=== PATIENT | male | born 1960 | race Caucasian/White ===

== ENCOUNTER 2021-01-26 13:14 | Inpatient (IN) | payer BC ==
[~2021-01-26] VITALS: Ht 185.5 cm; Wt 107.3 kg
[2021-01-26] VITALS (128 sets, daily range): BP systolic 137; BP diastolic 103; PULSE 94; O2SAT 88–100
[2021-01-26 14:12] LABS: BASO # 0.1 (0.0-0.2); BASO % 0.6 % (0.0-2.0); EOS # 0.3 (0.0-0.7); GRAN # 4.3 (1.4-6.5); GRAN % 52.3 % (42.2-75.2); HEMATOCRIT 44.2 % (42.0-52.0); HEMOGLOBIN 14.8 g/dl (13.5-18.0); LYMPH % 35.9 % (20.0-51.0); MEAN CELL VOLUME 92 fl (80.0-100.0); MEAN CORPUSCULAR HEMOGLOBIN 31 pg (27.0-31.0); MEAN CORPUSCULAR HGB CONC 34 g/dl (33.0-37.0); MEAN PLATELET VOLUME 10.5 fl (7.4-10.4); MONO # 0.7 (0.1-0.6); PLATELET COUNT 231 K/mm3 (130-400); REDCELL DISTRIBUTION WIDTH-CV 12.4 % (11.5-14.5)
[2021-01-26 14:24] LABS: ALANINE AMINOTRANSFERASE 26 U/L (4-49); ALBUMIN 4.3 gm/dL (3.5-5.0); ALKALINE PHOSPHATASE 52 U/L (50-136); ANION GAP 8 mmol/L (7-16); AST,SGOT 33 U/L (15-37); BILIRUBIN,TOTAL 0.3 mg/dL (0.0-1.0); BLOOD UREA NITROGEN 22 mg/dL (9-20); CALCIUM 9.3 mg/dL (8.4-10.2); CARBON DIOXIDE 29 mmol/L (22-30); CHLORIDE 102 mmol/L (98-107); CREATININE, serum 0.73 (0.66-1.25); GLUCOSE 87 mg/dL (74-106); LIPASE 184 U/L (23-300); POTASSIUM 3.5 mmol/L (3.4-5.0); SODIUM 139 mmol/L (137-145); TOTAL PROTEIN 7.9 gm/dL (6.4-8.2)
[2021-01-26 14:27] LABS: C-REACTIVE PROTEIN < 0.5 mg/dL (0.0-0.9)
[2021-01-26 14:29] LABS: INR 1.1 (0.8-3.0); PROTHROMBIN TIME 11.7 SECONDS (9.7-12.8)
[2021-01-26 14:37] LABS: PARTIAL THROMBOPLASTIN TIME 32.3 SECONDS (26.0-37.0)
--- NOTE | 2021-01-26 16:40 | NUR ---
RECEIVED REPORT FROM EDSON JAIN. AWAITING ARRIVAL OF PT TO ICU 8. SPOKE TO EDSON GOLDBERG WITH DR MERRILL EARLIER ABOUT PT AND POC, PROVIDER STATES NPO AFTER MIDNIGHT FOR POSSIBLE EMILY/CARDIOVERSION WITH CATH TOMORROW.
--- NOTE | 2021-01-26 17:05 | NUR ---
PT ARRIVES VIA STRETCHER. AMBULATES SELF TO ICU BED, STEADY GAIT. PT PLACED ON BEDSIDE CONTINUOUS MONITOR. SEE GTT FLOWSHEET. VSS. CALL LIGHT AND URINAL WITH REACH. PT STATES MINIMAL MIDSTERNAL CP INTERMINTTENTLY.
--- NOTE | 2021-01-26 17:20 | NUR ---
DR DANIEL AT BEDSIDE. PHYSICIAN STATES IF D DIMER IS ELEVATED TO LET BHARATH VINSON KNOW AND SHE WILL ORDER A CT PE. PHYSICIAN ALSO STATES THAT PT CAN BE IMCU STATUS.
--- NOTE | 2021-01-26 17:46 | NUR ---
NOTIFIED BHARATH VINSON OF D DIMER 640. NEW ORDERS RECEIVED.
[2021-01-26] MEDS ORDERED: NORVASC 5MG5 MG/TAB PO (18:35)
[2021-01-26] MEDS ORDERED: AMBIEN 10MG10 MG PO (18:35)
[2021-01-26] MEDS ORDERED: VOLTAREN 75 DR75 MG PO (18:36)
[2021-01-26] MEDS ORDERED: PROZAC 20MG20 MG PO (18:37)
[2021-01-26] MEDS ORDERED: PRINZIDE 25 MG-1 TAB PO (18:37)
--- NOTE | 2021-01-26 22:46 | NUR ---
Patient assessed around 2114. Alert and oriented x 4, and able to make needs known. Reports very mild discomfort to chest. Peripheral IV to right AC. Site is without redness, warmth, swelling, and pain. Heparin drip had been running at 2100 units/hr. Put on hold around 2039 for HepXa to be drawn. Results called to this nurse from lab, with critical result of 1.21. Heparin drip remains on hold per protocol, and will recheck HepXa at 2300, order placed. Patient updated on Heparin drip, and voiced understanding. Denies having SOB and dyspnea. LS CTA. Respiraitons even and unlabored. HRI. Telemetry in place: A-fib, with HR ranging from 90-110s. Capillary refill less than 3 seconds. Non-tenting skin turgor. BSAx4. Abdomen soft and non-tender. Continent of bladder. Used bedside urinal. Urine cristofer, clear. 1+ edema BLE. Patient's BP was 137/103. Called VJ Marshall and updated. Also updated of critical value for HepXa, and Troponin, which was 0.088 (trending down). Joanna stated she was ok with BP at this time. Went over plan with patient for plan for EMILY/CV tomorrow. Voiced understanding. Printed education for paticyrusn, and patient sigend consent, which was placed on chart. Patient aware that he will be NPO after midnight. Patient voices no questions, needs, or concerns at this time. Resting in bed with call light within reach.
--- NOTE | 2021-01-26 23:46 | NUR ---
Patient HepXa back at 0.34. Restarted Heparin drip at 1800 units/hr per Heparin protocol. Verrified by charge nurse. Recheck in 6 hours.
[2021-01-27] VITALS (396 sets, daily range): BP systolic 95–149; BP diastolic 75–112; PULSE 81–125; TEMP 97.7–98.2; O2SAT 88–100
--- NOTE | 2021-01-27 00:18 | NUR ---
Patient complaining of trouble sleeping. Given PRN Melatonin as requested per orders. Denies having any other questions, needs, or concerns at this time. Fluids taken away from patient, as he is now NPO. Resting in bed with call light within reach.
[2021-01-27 05:56] LABS: BASO # 0.1 (0.0-0.2); BASO % 0.7 % (0.0-2.0); EOS # 0.3 (0.0-0.7); EOS % 4.6 % (0-4.0); GRAN # 3.6 (1.4-6.5); GRAN % 49.3 % (42.2-75.2); HEMATOCRIT 43.5 % (42.0-52.0); HEMOGLOBIN 14.5 g/dl (13.5-18.0); LYMPH # 2.7 (1.2-3.4); LYMPH % 37.9 % (20.0-51.0); MEAN CELL VOLUME 93 fl (80.0-100.0); MEAN CORPUSCULAR HEMOGLOBIN 31 pg (27.0-31.0); MEAN CORPUSCULAR HGB CONC 33 g/dl (33.0-37.0); MEAN PLATELET VOLUME 10.1 fl (7.4-10.4); MONO # 0.5 (0.1-0.6); MONO % 7.2 % (1.7-9.3); PLATELET COUNT 219 K/mm3 (130-400); RED BLOOD COUNT 4.66 M/mm3 (4.20-5.60); REDCELL DISTRIBUTION WIDTH-CV 12.7 % (11.5-14.5)
[2021-01-27 06:05] LABS: INR 1.1 (0.8-3.0); PROTHROMBIN TIME 12.4 SECONDS (9.7-12.8)
--- NOTE | 2021-01-27 06:05 | NUR ---
Patient continues on Heparin drip at 18 mls/hr at this time. Awaiting next HepXa results at this time. Voices no questions, needs, or concerns at this time. Continues to be in A-fib, HR 90-100s. Resting in bed with call light within reach.
[2021-01-27 06:08] LABS: CREATININE, serum 0.76 (0.66-1.25); POTASSIUM 3.5 mmol/L (3.4-5.0)
--- NOTE | 2021-01-27 06:12 | NUR ---
HepXa 0.73. Decreased Heparin drip to 1700 units/hr (17 ml/hr) per protocol. Will recheck HepXa at 1200.
[2021-01-27 06:33] LABS: TROPONIN-I 0.084 ng/mL (0.000-0.035)
--- NOTE | 2021-01-27 10:47 | NUR ---
First visit from the cork molder. Patient was in a procedure, cork molder prayed for patient while standing outside their door.
--- NOTE | 2021-01-27 12:01 | NUR ---
Plan is home with carlos . Patient reports Son as secondary [phone]. SW met with patient about care. Patient reports that they reside in [facility]. Patient indicated that his pcp is Dr. Alvarado in [facility] but is changing PCP. Patients [facility] but not sure of name. Uses [facility] for medications. No DME use. No DPOA but will make decision. Patient reports that her drive without problem and does not have any care concerns at tis time. Patient educated on services available to them. Will follow.
--- NOTE | 2021-01-27 17:03 | NUR ---
PT TO ROOM 318 VIA WHEELCHAIR. NURSE MARY AT BEDSIDE FOR HANDOFF OF PT CARE. PT TRANSFERED ON TELE MONITOR AND BELONGINGS LEFT IN ROOM WITH PATIENT.
--- NOTE | 2021-01-27 21:58 | NUR ---
Upon comming onto shift at 1845, Heparin drip started with day shift nurse at 1700 units/hr per orders. Order placed to recheck HepXa at 0045. Patient assessed at 1920. Alert and oriented x 4, and able to make needs known. Denies having pain and discomfort at this time. Peripheral IV to right AC. Site without redness, warmth, swelling, and pain. Denies having SOB and dyspnea. LS CTA. Respirations even and unlabored. HRI. Telemetry in place: a-fib 90s-100s. Capillary refill less than 3 seconds. Non-tenting skin turgor. BSAx4. Abdomen soft and non-tender. 1+ edema BLE. Bandaid to right radial site CDI. Gauze to right femoral site is intact. No further bleeding noted to site. Voices no questions, needs, or concerns at this time. Resting in bed with call light within reach.
[2021-01-28] VITALS (154 sets, daily range): BP systolic 120–147; BP diastolic 77–92; PULSE 51–77; TEMP 97.3–98.5; O2SAT 66–100
--- NOTE | 2021-01-28 05:46 | NUR ---
Patient has been resting in bed with call light within reach. Denies having pain and discomfort. Voices no questions, needs, or concerns at this time. Has been NPO since midnight for EMILY/CV today around 1030.
[2021-01-28 06:55] LABS: CALCIUM 8.8 mg/dL (8.4-10.2); CREATININE, serum 0.69 (0.66-1.25); MAGNESIUM 1.9 mg/dL (1.6-2.3); POTASSIUM 3.8 mmol/L (3.4-5.0)
--- NOTE | 2021-01-28 07:24 | NUR ---
HepXa 0.64, this is within goal range, no rate or dose change, will continue TRA 17ml/hr (1700 units/hr)
--- NOTE | 2021-01-28 08:00 | NUR ---
Assessment completed, alert/oriented, vital signs stable, denies pain or discomfort, A.brayan on tele/ scheduled for EMILY/CV at 1030 today, consent signed, right femoral access site dressing is intact/ had some bleeding last night but site stable/ no signs of active bleeding or hematoma, he is NPo, resting quietly and denies other needs at this time
--- NOTE | 2021-01-28 10:42 | NUR ---
Patient is going to have EMILY/CV at this time, post preocedure he is going to ICU 8 to initiate Tikosyn
--- NOTE | 2021-01-28 10:43 | NUR ---
report given to receiving nurse EDSON Harrison
--- NOTE | 2021-01-28 13:07 | NUR ---
The patient transferred to the ICU floor.
[2021-01-28] MEDS ORDERED: ASPIRIN 81M81 MG/TA2 PO (17:21)
--- NOTE | 2021-01-28 17:21 | NUR ---
Report recieved from Gerard RN, all questions answered. Patient transported to Medical bed 318 via wheel chair. Transfered to bed without difficulty. Heparin infusing at 17units to right AC. Patient denies discomfort and nausea at this time. Heart rate 56. Right groin site clean dry intact. Call braxton within reach, all safety maintained. Will continue to monitor.
[2021-01-29] VITALS (7 sets, daily range): BP systolic 123–143; BP diastolic 75–87; PULSE 51–65; TEMP 97.9–99.6
--- NOTE | 2021-01-29 00:30 | NUR ---
Patient assessed around 2129. Alert and oriented x 4, and able to make needs known. Denies having pain and discomfort at this time. Peripheral IV had heparin drip running per orders. D/C'd Heparin drip at 2200 per orders. IV site without redness, warmth, swelling, and pain. Denies having SOB and dypena. LS CTA. Respirations even and unlabored. HRR. Telemetry in place: sinus bradycardia. Capillary refill less than 3 seconds. Non-tenting skin turgor. BSAx4. Abdomen soft and non-tender. No edema. Patient took shower as requested. Received Tikosyn and EKG 2 hours after receiving medication. QTC 505. Patient voices no questions, needs, or concerns at this time. Resting in bed with call light within reach.
[2021-01-29 06:01] LABS: HEMATOCRIT 41.6 % (42.0-52.0); HEMOGLOBIN 13.7 g/dl (13.5-18.0); MEAN CELL VOLUME 94 fl (80.0-100.0); MEAN CORPUSCULAR HEMOGLOBIN 31 pg (27.0-31.0); MEAN CORPUSCULAR HGB CONC 33 g/dl (33.0-37.0); MEAN PLATELET VOLUME 10.8 fl (7.4-10.4); PLATELET COUNT 191 K/mm3 (130-400); RED BLOOD COUNT 4.41 M/mm3 (4.20-5.60); REDCELL DISTRIBUTION WIDTH-CV 12.5 % (11.5-14.5)
--- NOTE | 2021-01-29 06:14 | NUR ---
Patient has been resting in bed with call light within reach. Has denied having pain and discomfort this shift. Voices no questions, needs, or concerns at this time.
[2021-01-29 06:25] LABS: MAGNESIUM 2.3 mg/dL (1.6-2.3); POTASSIUM 4.4 mmol/L (3.4-5.0)
--- NOTE | 2021-01-29 08:30 | NUR ---
Assessment completed, alert/oriented, vital signs stable, denies chst pain or discomfort, heart RRR/ SR on tele, will give 3rd dose of Tikosyn this morning per protocol, patient is sitting up eating breakfast and denies other needs, will continue to monitor
[2021-01-30 04:04] VITALS: BP 122/74; PULSE 62; TEMP 98.3
--- NOTE | 2021-01-30 04:52 | NUR ---
RESTED THOUGH THE NIGHT WITHOUT INCIDENT. NEEDS MET.
[2021-01-30 06:28] LABS: HEMATOCRIT 40.2 % (42.0-52.0); HEMOGLOBIN 13.5 g/dl (13.5-18.0); MEAN CELL VOLUME 93 fl (80.0-100.0); MEAN CORPUSCULAR HEMOGLOBIN 31 pg (27.0-31.0); MEAN CORPUSCULAR HGB CONC 34 g/dl (33.0-37.0); PLATELET COUNT 178 K/mm3 (130-400); RED BLOOD COUNT 4.32 M/mm3 (4.20-5.60); REDCELL DISTRIBUTION WIDTH-CV 12.3 % (11.5-14.5)
[2021-01-30 07:01] LABS: CREATININE, serum 0.74 (0.66-1.25); MAGNESIUM 2.2 mg/dL (1.6-2.3); POTASSIUM 4.1 mmol/L (3.4-5.0)
[2021-01-30 08:01] VITALS: BP 122/67; PULSE 70; TEMP 98.9
--- NOTE | 2021-01-30 08:30 | NUR ---
Shift assessment complete. A&Ox4. Heart RRR. Lungs CTA. Denies chest pain, SOA, dizziness. Does report moderate pain to lower back, tylenol given per orders and heat pad applied. Denies other needs. Call light in reach.
[2021-01-30] MEDS ORDERED: ELIQUIS 5MG PO (09:50)
[2021-01-30] MEDS ORDERED: TIKOSYN0.25 MG PO (09:51)
[2021-01-30] MEDS ORDERED: LIPITOR 40MG TA40 MG PO (09:51)
[2021-01-30] MEDS ORDERED: ENTRESTO 24 MG1 EACH PO (09:52)
[2021-01-30] MEDS ORDERED: LASIX 20MG TABL20 MG PO (09:52)
[2021-01-30] MEDS ORDERED: COREG 3.123.125 MG/T PO (09:52)
[2021-01-30 11:35] VITALS: BP 125/76; PULSE 51; TEMP 99
[2021-01-30 15:47] VITALS: BP 132/86; PULSE 63; TEMP 99.4
[2021-01-30 19:51] VITALS: BP 131/75; PULSE 68; TEMP 98.2
--- NOTE | 2021-01-30 23:31 | NUR ---
ALERT AND OX4. DENIES SOA, CHEST PAIN OR DIZZY. 6TH DOSE OF TIKOSYN GIVEN. ANTICIPATES DC TOMORROW. CONT TO HAVE BACK PAIN. HEATING PAD HELPING SOME ALONG W TYLENOL. POC DISCUSSED. NEEDS MET. SR ON TELE.
[2021-01-30 23:47] VITALS: BP 146/82; PULSE 61; TEMP 98.7
[2021-01-31 04:12] VITALS: BP 132/76; PULSE 61; TEMP 98.9
--- NOTE | 2021-01-31 05:23 | NUR ---
RESTED THROUGH OUT THE NIGHT WITHOUT INCIDENT. NEEDS MET.
[2021-01-31 08:00] VITALS: BP 115/73; PULSE 65; TEMP 98.6
--- NOTE | 2021-01-31 12:25 | NUR ---
Discharge instructions discussed w/pt and all questions answered. IV to right forearm removed, tip intact. Pt awaiting ride from and told to call when she is here.
--- NOTE | 2021-01-31 12:50 | NUR ---
Pt escorted out by medical community relations director at this time. All belongings in tow.
== END 2021-01-31 12:50 | disposition home or self-care (01) | DRG 280 ==
LOC: COL.ER 13:14 → ICU 16:03 → MEDICAL 16:03 → ICU 01-27 12:04 → MEDICAL 01-27 17:15 → ICU 01-28 14:23 → MEDICAL 01-28 14:23 → ICU 01-28 14:23 → MEDICAL 01-28 16:45
PROVIDERS: Emergency Medicine; Physician Assistant; Student in an Organized Health Care Education/Training Program; ADMIT Hospitalist
PROC: 5A2204Z Restoration of Cardiac Rhythm, Single (ICD-10-PCS; principal; 2021-01-28)
PROC: 4A023N7 Measurement of Cardiac Sampling and Pressure, Left Heart, Percutaneous Approach (ICD-10-PCS; 2021-01-28)
PROC: B2111ZZ Fluoroscopy of Multiple Coronary Arteries using Low Osmolar Contrast (ICD-10-PCS; 2021-01-28)
DX: I21.4 Non-ST elevation (NSTEMI) myocardial infarction (principal); I50.21 Acute systolic (congestive) heart failure; I42.9 Cardiomyopathy, unspecified; I48.91 Unspecified atrial fibrillation; I10 Essential (primary) hypertension; G47.33 Obstructive sleep apnea (adult) (pediatric); F32.9 Major depressive disorder, single episode, unspecified; M54.9 Dorsalgia, unspecified; Z20.822 Contact with and (suspected) exposure to COVID-19; I45.10 Unspecified right bundle-branch block
CPT/HCPCS: 99222-AI; 99231-AI; 99232-AI; 99239; C1760; C1769; C1894; J1644; J2250; J2270; J2704; J3010; J3475; J7040; Q9967

== ENCOUNTER → 2021-12-01 | Outpatient (CLI) | payer BC ==
[~2021-12-01] MED LIST: AMBIEN 10MG10 MG PO; ASPIRIN 81M81 MG/TA2 PO; COREG 3.123.125 MG/T PO; ELIQUIS 5MG PO; ENTRESTO 24 MG1 EACH PO; LASIX 20MG TABL20 MG PO; LIPITOR 40MG TA40 MG PO; NORVASC 5MG5 MG/TAB PO; PRINZIDE 25 MG-1 TAB PO; PROZAC 20MG20 MG PO; TIKOSYN0.25 MG PO; VOLTAREN 75 DR75 MG PO
== END ==
LOC: COL.RAD 10:49
DX: I77.810 Thoracic aortic ectasia (principal)
CPT/HCPCS: Q9967

== ENCOUNTER 2023-06-28 07:53 | Day surgery (SDC) | payer BC ==
[2023-06-28] VITALS (7 sets, daily range): BP systolic 109–128; BP diastolic 78–96; PULSE 50–78; TEMP 98
[~2023-06-28] VITALS: Ht 185.5 cm; Wt 123.0 kg
[~2023-06-28 07:53] MED LIST changes: +AMBIEN CR6.25 MG PO; +ASPIRIN E.C. 8181 MG PO; +CYMBALTA 20MG20 MG PO; +ENTRESTO 49 MG1 EACH PO; +K-DUR 10 MEQ T10 MEQ PO; +LASIX 40MG TABL40 MG PO; +NITROSTAT0.4 MG/TAB SL; +PROAIR HFA0.09 MG/AC IH
[2023-06-28 08:37] LABS: BASO # 0.1 K/mm3 (0.0-0.2); BASO % 1.1 % (0.0-2.0); EOS # 0.3 K/mm3 (0.0-0.7); EOS % 4.9 % (0.0-4.0); GRAN # 2.9 K/mm3 (1.4-6.5); GRAN % 53.1 % (42.2-75.2); HEMATOCRIT 44.2 % (42.0-52.0); HEMOGLOBIN 14.9 g/dl (13.5-18.0); LYMPH # 1.8 K/mm3 (1.2-3.4); LYMPH % 33.3 % (20.0-51.0); MEAN CELL VOLUME 93 fl (80.0-100.0); MEAN CORPUSCULAR HEMOGLOBIN 31 pg (27-31); MEAN CORPUSCULAR HGB CONC 34 g/dl (33.0-37.0); MEAN PLATELET VOLUME 10.8 fl (7.4-10.4); MONO # 0.4 K/mm3 (0.1-0.6); MONO % 7.4 % (1.7-9.3); PLATELET COUNT 172 K/mm3 (130-400); RED BLOOD COUNT 4.76 M/mm3 (4.20-5.60); REDCELL DISTRIBUTION WIDTH-CV 12.4 % (11.5-14.5)
[2023-06-28] MEDS ORDERED: TOPROL XL 25MG25 MG PO (08:49)
[2023-06-28 08:57] LABS: INR 1.2 (0.8-3.0); PROTHROMBIN TIME 13.5 SECONDS (9.7-12.8)
[2023-06-28 08:59] LABS: PARTIAL THROMBOPLASTIN TIME 35.5 SECONDS (26.0-37.0)
[2023-06-28 09:02] LABS: CALCIUM 9.4 mg/dL (8.4-10.2); CREATININE, serum 0.86 mg/dL (0.72-1.25); MAGNESIUM 2.1 mg/dL (1.6-2.6)
[2023-06-28 09:23] LABS: THYROID STIMULATING HORMONE 0.933 uIU/mL (0.350-4.940)
--- NOTE | 2023-06-28 10:35 | NUR ---
RECEIVED REPORT FROM FREIGHT FLAGMAN, PT IS AWAKE AND ALERT, NOW IN ROOM. SITS UP IN BED. EKG DONE POST. CALL LIGHT IN REACH
--- NOTE | 2023-06-28 11:00 | NUR ---
PO MEDICATION GIVEN ORDERED POST PROCEDURE, TAKES WATER, ORDERED LUNCH
--- NOTE | 2023-06-28 12:00 | NUR ---
DR CORMIER INTO SEE PT AND . PT ATE LUNCH, SITS ON SIDE OF BED, HAS RED AREA ON CENTER OF CHEST FROM PAD, NO OPEN AREA OR C/O PAIN, DISCHARGE INST. GIVEN TO PT ON CARE OF THAT SITE, ALSO FOLLOWUP AND NEW RX TO BE PICKED UP, REVIEWED ACTIVITY PRECAUTIONS ALSO WITH PT.
[2023-06-28] MEDS ORDERED: CORDARONE200 MG/TAB PO (12:08)
--- NOTE | 2023-06-28 12:30 | NUR ---
IV D'CD INTACT, PT UP IN ROOM DRESSED, DISCAHRAGED WITH PAPER WORK VIA W/C TO CAR WITH
== END 2023-06-28 12:30 | disposition home or self-care (01) ==
LOC: COL.CAR 07:53
PROVIDERS: Internal Medicine Cardiovascular Disease
DX: I48.0 Paroxysmal atrial fibrillation (principal); I42.0 Dilated cardiomyopathy; I42.8 Other cardiomyopathies; I10 Essential (primary) hypertension; E78.5 Hyperlipidemia, unspecified; I49.5 Sick sinus syndrome; Z28.310 Unvaccinated for COVID-19; Z87.891 Personal history of nicotine dependence; Z95.818 Presence of other cardiac implants and grafts; Z79.82 Long term (current) use of aspirin; Z79.899 Other long term (current) drug therapy; Z79.01 Long term (current) use of anticoagulants; Z77.22 Contact with and (suspected) exposure to environmental tobacco smoke (acute) (chronic)
CPT/HCPCS: J2704; J7030